=== PATIENT | female | born 1945 | race Caucasian/White ===

== ENCOUNTER → 2023-03-07 | Outpatient (CLI) | payer MEDICARE, SELFPAY ==
--- NOTE | 2023-03-07 13:06 | US_ITS ---
STUDY: RENAL ULTRASOUND - COMPLETE REASON FOR EXAM: Female, 77 years old. UTI . History of prior partial left nephrectomy. TECHNIQUE: Ultrasound evaluation of the kidneys was performed with real-time and static irwin-scale imaging. COMPARISON: None. FINDINGS: RIGHT KIDNEY: Normal location of the right kidney, which is normal in size. The right kidney measures 11.5 cm x 4.8 cm x 4.5 cm. There is a normal cortex of the right kidney. The renal cortex measures 1.1 cm. There is no right renal mass or cyst. There are no right renal calculi. There is no right hydronephrosis. DISTAL RIGHT URETER: There is non-visualization of the distal right ureter. There is no demonstrated right ureterovesical junction calculus. There is a visualized right ureteral jet. LEFT KIDNEY: Normal location of the left kidney, which is normal in size. The left kidney measures 9.3 cm x 5.1 cm x 4.7 cm. There is a normal cortex of the left kidney. The renal cortex measures 1.0 cm. There is no left renal mass or cyst. Nonobstructive intrarenal calculi. The largest measures 5 mm x 3 mm x 3 mm. There is no left hydronephrosis. DISTAL LEFT URETER: There is non-visualization of the distal left ureter. There is no demonstrated left ureterovesical junction calculus. There is a visualized left ureteral jet. BLADDER: The distended urinary bladder has a volume of 86 ml. There is a normal wall thickness of the distended urinary bladder. There is no demonstrated mass within the urinary bladder. There are no demonstrated bladder calculi. US/Kidney and Bladder IMPRESSION: Nonobstructive left intrarenal calculi. Electronically Signed: Maximus Millan MD at 16:09 [facility] ,
== END | disposition home or self-care (01) ==
PROVIDERS: PCP Internal Medicine; Referring Provider Urology; Visit Provider Urology
DX: Q60.0 Renal agenesis, unilateral (principal); N39.0 Urinary tract infection, site not specified; Z87.442 Personal history of urinary calculi
CPT/HCPCS: 76770

== ENCOUNTER → 2023-03-21 | Outpatient (CLI) | payer MEDICARE, SELFPAY ==
--- NOTE | 2023-03-21 14:41 | CT_ITS ---
STUDY: CT ABDOMEN AND PELVIS WITHOUT CONTRAST REASON FOR EXAM: Female, 78 years old. RENAL STONES. History of prior partial left nephrectomy. RADIATION DOSAGE (If Supplied By Facility): CTDIvol = ( 17.37 ) mGy, DLP = ( 833.26 ) mGycm TECHNIQUE: Transaxial images were obtained from the dome of the diaphragm to the symphysis pubis without oral contrast, and without intravenous contrast. Sagittal and coronal images were reconstructed. Individualized dose optimization techniques were used for this CT. COMPARISON: None. FINDINGS: The visualized lung bases are unremarkable. Coronary artery calcification. Normal liver. There are surgical clips in the gallbladder fossa consistent with a prior cholecystectomy. Normal spleen. Normal pancreas. Normal bilateral adrenal glands. Normal right kidney. Punctate cortical calcification along the posterior midportion of the left kidney. Normal visualized stomach. Normal small intestine. Normal colon. There are surgical clips in the region of the appendix consistent with a prior appendectomy. There is scattered atherosclerotic calcification of the abdominal aorta, without a demonstrated aneurysm. Normal inferior vena cava. There is borderline retroperitoneal lymphadenopathy with enlarged nodes no greater than 10mm in the short axis diameter. Normal urinary bladder. There is absence of the uterus consistent with a prior hysterectomy. There is an umbilical hernia containing fat. The neck of the hernia measures 3.5 cm. There are diffuse degenerative changes of the visualized lumbar spine. CT/Abdomen/Pelvis without Cont IMPRESSION: Umbilical hernia. Status post cholecystectomy. Electronically Signed: Maximus Millan MD at 15:26 EST ,
--- OUTSIDE RECORDS SUMMARY | 2023-03-21 18:34 | XMS RPT_ITS | CCD ---
Author Name Unknown Address [address] [place] [address] Organization [facility] Care Team Providers Care Input Output Clerk Name Role Phone Renuka Ovalle Primary Care Provider Monica PALMER, Javan Unavailable Vasquez PALMER, Renuka Reed Primary Care Provider LAURIE MACIAS Attending Unavailable RENUKA OVALLE Primary Care Unavailable OLIVIA LIMON Attending Unavailable RENUKA OVALLE Primary Care Unavailable VASQUEZ, RENUKA REED Primary Care Unavailable GARRET SMITH Attending Unavailable OLIVIA LIMON Attending Unavailable VASQUEZ, RENUKA REED Primary Care Unavailable OLIVIA LIMON Admitting Unavailable OLIVIA LIMON Attending Unavailable VASQUEZ, RENUKA REED Primary Care Unavailable VASQUEZ, RENUKA REED Primary Care Unavailable OLIVIA LIMON Referring Unavailable RENUKA OVALLE Primary Care Unavailable VASQUEZ, RENUKA REED Primary Care Unavailable PHILIPPE HUBBARD Attending Unavailable JERMAN STERN Attending Unavailable RENUKA OVALLE Primary Care Unavailable JERMAN STERN Referring Unavailable RENUKA OVALLE Primary Care Unavailable JAVAN ANDERSON Attending Unavailable VASQUEZ, RENUKA Primary Care Unavailable Allergies Allergy Classification Reported Allergen(s) Allergy Type Date of Onset Reaction(s) Facility (11 sources) Amoxicillin; Translations: [AMOXICILLIN] Drug Allergy 08-11-19 Shortness of Breath [facility] (16 sources) Amoxicillin / Clavulanate; Translations: [AMOXICILLIN-POT CLAVULANATE] Drug Allergy 08-11-19 Vomiting [facility] (16 sources) Ampicillin; Translations: [AMPICILLIN] Drug Allergy 07-17-19 Vomiting [facility] (16 sources) cefdinir; Translations: [CEFDINIR] Drug Allergy 02-18-19 [facility] (16 sources) cefTRIAXone; Translations: [CEFTRIAXONE] Drug Allergy 02-18-19 [facility] (16 sources) Cefuroxime; Translations: [CEFUROXIME] Drug Allergy 02-18-19 [facility] (16 sources) diphenhydrAMINE / Pseudoephedrine; Translations: [DIPHENHYDRAMINE-PS EUDOEPHED] Drug Allergy 07-17-19 Other: See Comments [facility] (16 sources) Doxycycline; Translations: [DOXYCYCLINE] Drug Allergy 02-18-19 GI Upset [facility] (16 sources) Nitrofurantoin; Translations: [NITROFURANTOIN MACROCRYSTAL] Drug Allergy 07-17-19 Hives [facility] (16 sources) Sulfonamides (Antibiotic); Translations: [SULFA (SULFONAMIDE ANTIBIOTICS)] Drug Intolerance 07-17-19 [facility] (8 sources) levoFLOXacin; Translations: [LEVOFLOXACIN] Drug Allergy 04-11-19 Other: See Comments [facility] Medications Current Medications Medication Drug Class(es) Dates Sig (Normalized) Sig (Original) amoxicillin 500 mg / clavulanate 125 mg oral tablet (1 source) Penicillin-class Antibacterial Start: 11-08-2022 End: 11-15-2022 take 1 tablet by mouth twice daily amoxicillin-clav ulanic acid (AUGMENTIN) 500-125 mg per tablet Take 1 tablet by mouth twice daily for 7 days. 14 tablet 0 11/08/2022 11/15/2022 Active Completed/Discontinued Medications Medication Drug Class(es) Dates Sig (Normalized) Sig (Original) clobetasol propionate 0.5 mg/ml topical solution (20 sources) Corticosteroid Start: 02-16-2021 Clobetasol Propionate (TEMOVATE) 0.05 % external solution Problems Active Problems Problem Classification Problem Date Documented Da te Episodic/Chronic Abdominal pain (2 sources) Unspecified abdominal pain; Translations: [Unspecified abdominal pain] Onset: 02-22-2023 Episodic Asthma (15 sources) Asthma; Translations: [Unspecified asthma, uncomplicated] Onset: 07-02-2018 07-02-2018 Chronic Calculus of urinary tract (15 sources) Kidney stone; Translations: [Calculus of kidney] Onset: 03-27-2022 Episodic Chronic obstructive pulmonary disease and bronchiectasis (15 sources) Chronic obstructive lung disease; Translations: [Chronic obstructive pulmonary disease, unspecified] Onset: 07-02-2018 07-02-2018 Chronic Essential hypertension (15 sources) Hypertensive disorder; Translations: [Essential (primary) hypertension] Onset: 07-02-2018 07-02-2018 Chronic Osteoarthritis (15 sources) Osteoarthritis; Translations: [Primary generalized (osteo)arthritis] Onset: 07-02-2018 07-02-2018 Chronic Other diseases of bladder and urethra (2 sources) Overactive bladder; Translations: [Overactive bladder] Onset: 11-18-2022 Chronic Other diseases of bladder and urethra (1 source) Overactive bladder; Translations: [OAB (overactive bladder)] Onset: 11-18-2022 Chronic Other nutritional; endocrine; and metabolic disorders (7 sources) Obese class I; Translations: [Obesity, unspecified] Onset: 04-12-2022 04-12-2022 Chronic Residual codes; unclassified (2 sources) History of partial nephrectomy; Translations: [Acquired absence of kidney] Onset: 11-18-2022 Episodic Residual codes; unclassified (2 sources) Acquired absence of kidney; Translations: [Hx of partial nephrectomy] Onset: 03-14-2022 Episodic Urinary tract infections (15 sources) Acute urinary tract infection; Translations: [Urinary tract infection, site not specified] Onset: 03-14-2022 Episodic Past or Other Problems Problem Classification Problem Date Documented Date Episodic/Chronic Biliary tract disease (15 sources) Calculus of cystic duct; Translations: [Calculus of gallbladder without cholecystitis without obstruction] Onset: 08-10-2018 08-10-2018 Episodic Deficiency and other anemia (15 sources) Anemia; Translations: [Anemia, unspecified] Onset: 07-02-2018 07-02-2018 Episodic Other diseases of kidney and ureters (15 sources) Kidney disease; Translations: [Disorder of kidney and ureter, unspecified] Onset: 07-02-2018 07-02-2018 Episodic Other lower respiratory disease (15 sources) Disorder of lung; Translations: [Other disorders of lung] Onset: 07-02-2018 07-02-2018 Episodic Other lower respiratory disease (1 source) Solitary pulmonary nodule; Translations: [Lung nodule] Onset: 03-27-2022 Episodic Thyroid disorders (15 sources) Disorder of thyroid gland; Translations: [Disorder of thyroid, unspecified] Onset: 07-02-2018 07-02-2018 Episodic Results Test Name Value Interpretation Reference Range Facil ity Vital Signs Date Time Vital Sign Value Performing Clinician Иван vasquez 05-16-2022 11:13-0400 Body height 165.1 cm Jerman Stern BARBER APPRENTICE.MACHINE ROPE MAKER Work Phone: [facility] 05-16-2022 11:13-0400 Body weight 91.17 kg Jermansyed Stern BARBER APPRENTICE.MACHINE ROPE MAKER Work Phone: [facility] 05-16-2022 11:13-0400 Diastolic blood pressure 78 mm[Hg] Jerman Stern BARBER APPRENTICE.MACHINE ROPE MAKER Work Phone: [facility] 05-16-2022 11:13-0400 Systolic blood pressure 117 mm[Hg] Jerman Stern BARBER APPRENTICE.MACHINE ROPE MAKER Work Phone: [facility] 03-14-2022 15:28-0500 Body height 165.1 cm Olivia Limon MD Work Phone: [facility] 03-14-2022 15:28-0500 Body weight 91.17 kg Olivia Limon MD Work Phone: [facility] 03-14-2022 15:28-0500 Diastolic blood pressure 80 mm[Hg] Olivia Limon MD Work Phone: [facility] 03-14-2022 15:28-0500 Systolic blood pressure 128 mm[Hg] Olivia Limon MD Work Phone: [facility] Encounters Encounter Date Encounter Type Care Provider Facility Start: 02-22-2023 End: 02-22-2023 ambulatory [facility] Start: 11-21-2022 Telephone encounter Laurie Macias BARBER APPRENTICE.MACHINE ROPE MAKER Work Phone: Urology Start: 11-18-2022 End: 11-18-2022 ambulatory LAURIE MACIAS Facility:[id number] Start: 11-08-2022 Telephone encounter Nancy chan BARBER APPRENTICE.MACHINE ROPE MAKER Work Phone: Urology Start: 10-03-2022 Telephone encounter Javan estevez MD Work Phone: [facility] Start: 09-30-2022 Telephone encounter Javan estevez MD Work Phone: [facility] Procedures Date Procedure Procedure Detail Performing Clinician Start: 05-16-2022 Radiologic exam abdo men 1 view Jerman Stern BARBER APPRENTICE.MACHINE ROPE MAKER Work Phone: Start: 05-16-2022 Urnls dip stick/tabl et rgnt auto w/o microscopy Jerman Stern BARBER APPRENTICE.MACHINE ROPE MAKER Work Phone: Start: 04-12-2022 Radiologic exam abdo men 1 view Olivia Limon MD Work Phone: Start: 07-16-2020 Mammography Olivia hernandez MD Work Phone: Start: 02-22-2020 Lipid 1996 panel - S jihan or Plasma Nancy Benítez BARBER APPRENTICE.MACHINE ROPE MAKER Work Phone: Plan of Treatment Date Care Activity Detail Author Start: 11-03-2025 Diabetes Screening Diabetes Screenin g [facility] Start: 05-04-2025 DIABETES SCREEN DIABETES SCREEN [facility] Start: 03-26-2025 DIABETES SCREEN DIABETES SCREEN [facility] Start: 02-21-2025 Lipid 1996 panel - Serum or Plasma Lipid Screening [facility] Start: 02-21-2025 LIPID SCREEN LIPID SCREEN [facility] Start: 08-13-2024 DIABETES SCREEN DIABETES SCREEN [facility] Start: 05-17-2023 BP CONTROLLED (<130/80) BP CONTROLLE D (<130/80) [facility] Start: 03-30-2023 BP CONTROLLED (<130/80) BP CONTROLLE D (<130/80) [facility] Start: 01-11-2023 End: 01-11-2023 Patient encounter procedure 01/11/2023 10:00 AM EST Office Visit [facility] [address] [place] [address] Javan Anderson MD [address] [place] [address] [facility] Start: 11-23-2022 End: 11-23-2022 Patient encounter procedure 11/23/2022 3:00 PM EDT Office Visit [facility] [address] [place] [address] Javan Anderson MD [address] [place] [address] [facility] Start: 11-15-2022 End: 05-17-2023 XR ABDOMEN 1V SUPINE XR ABDOMEN 1V SUPINE Radiology Routine Renal stones Expected: 11/15/2022 (Approximate), Expires: 05/17/2023 [facility] Work Phone: Payers Date Payer Category Payer Medicare [id number] 2021 Medicare [employer] MEDICARE A ETNA MEDICARE PPO [id number] 2021-Present [phone] [address] [place] [address] PPO [id number] 2021 Medicare [id number] Social History Date Type Detail Facility Start: 07-02-2018 End: 03-26-2022 Tobacco smoking status NHIS Never smoked tobacco [facility] Start: 07-02-2018 End: 03-26-2022 Tobacco use and exposure Smokeless tobacco non-user [facility] Start: 02-18-2021 End: 11-18-2022 Alcohol intake Lifetime non-drinker (finding) [facility] Start: 08-27-2018 History SDOH Alcohol Frequency 1 [facility] Start: 1945 Sex Assigned At Not on file [facility] Start: 08-22-2021 End: 09-01-2021 Exposure to SARS-CoV-2 (event) Not sure [facility] Tobacco smoking stat [facility] Tobacco smoking consumption unknown [facility] Start: 08-27-2018 End: 11-18-2022 Gender identity Not on file [facility] Start: 08-27-2018 End: 11-18-2022 History of Social function [facility] How often to you hav e a drink containing alcohol? Never [facility] Average Number of Drinks Not on file [facility] Clinical Notes 02-18-2021 to 11-21-2022 Telephone Encounter - Vanesa Brandon MA - 11/21/2022 3:45 PM EDTTelephone Encounter - Laurie Macias APRN.CNP - 11/21/2022 12:19 PM EDTAlexRT Marta(R) - 05/16/2022 12:15 PM EDT Note Date & Type Note Facility 11-21-2022 Miscellaneous Notes Notified pt. Vanesa Brandon MA Please advise urine cx negative. 10-50k normal urogenital lani. No tx recommended at this time. documented in this encounter [facility] 11-18-2022 Note HNO ID: [id number] Author: Laurie Macias APRN.CNP Service: ? Author Type: Nurse Practitioner Type: Progress Notes Filed: 11/18/2022 1:04 PM Note Text: [facility] ESTABLISHED PATIENT FOLLOW-UP NOTE PATIENT: Meme Gilbert (77 year old) PCP: Renuka Ovalle MD SUMMARY: Jasonn known to Dr. Limon. Hx of Niki, hx of nephrolithiasis, OAB, and hx of partial nephrectomy in 1983 for Niki. Last seen in office by Jerman Stern APRN, CNP on 05/16/22 for ER follow-up for R UVJ stone and follow-up in 6 months. ASSESSMENT/PLAN: 1. History of nephrolithiasis - ICD9: V13.01, ICD10: Z87.442 (primary diagnosis) KUB not completed prior to visit. Advised to complete. 2. Hx of partial nephrectomy - ICD9: V15.29, ICD10: Z90.5 Hx of partial nephrectomy in 1983 d/t Niki per her report. 3. OAB (overactive bladder) - ICD9: 596.51, ICD10: N32.81 No current medications. 4. Recurrent UTI - ICD9: 599.0, ICD10: N39.0 Most recent lab reviewed ordered by Dr. Ovalle which demonstrated >100k E-coli and 10-50 k klebsiella. Reviewed extensive list of allergies at length which include cefdinir, cefuroxime, Levaquin, rocephin, ampicillin, Augmentin, doxycycline, nitrofurantoin, and sulfa. Advised that Cipro is still sensitive. She reported that she is unable to take even though not on allergy list. Reported she is only able to take Gentamycin as she was told by hospital it was the only medication that would cure her infections . She was recently treated by Nancy Benítez APRN, CNP on 11/09/22 for concern for infection and was treated with Augmentin. Patient reported she was not given Augmentin she was only on amoxicillin. Advised that Augmentin was sent into pharmacy. She stated she tolerated medication without difficulty. No zofran needed. Advised would recommend catheterized urine cx. Patient adamantly declined. I reviewed her most recent cx history at great length. Cx history only identified one cx proven UTI this year. Advised patient would not recommend standing order for urine cx and would recommend restarting vitamin D and methenamine as decreases risk for future Niki. She reported that they do not work and only take the edge off the infection enough to not show on a urine cx. Instructed patient that would recommend cath urine if symptomatic for UTI only to be able to accurately evaluate if she is having a UTI due to multiple antibiotic sensitivities and allergies. I discussed with the patient the diagnosis of recurrent UTI. We reviewed possible etiologies and discussed pertinent lifestyle modifications. Discussed with patient that a urinary tract infection (UTI) is a positive urine culture AND presence of urinary symptoms (dysuria, frequency, urgency, suprapubic pain). Recurrent urinary tract infections (Niki) is defined as 2 or more UTIs in 6 month period or 3 in 12 month period. I advised patient that I would send out voided urine specimen for clearance of infection as she is still having burning and vague LUQ pain. Declines imaging. No CVA tenderness stating that she knows what her infections are and feel like, no matter what the culture shows . Patient reported that she is going to make an appointment with another urologist for a second opinion. She requested I send this office visit to Dr. Gonzalez. - URINE CULTURE FOLLOW UP: Patient declined to make further appointment. CHIEF COMPLAINT: Patient presents with: nephrolithiasis: Pt here for 6 month follow up. HISTORY OF PRESENT ILLNESS: Prior notes were reviewed. Patient presents for 6 month follow-up for Niki, hx of nephrolithiasis, and OAB. Reports she was recently tx for uti and reported intermittent LUQ pain and dysuria. Denies any fever, chills, weakness, or night sweats. REVIEW OF SYSTEMS GENERAL:Denies unintentional weight loss, malaise or fevers. NEUROLOGIC: pt is alert and oriented GASTROINTESTINAL: No nausea, vomiting, or diarrhea GENITOURINARY: See HPI MUSCULOSKELETAL: Negative for joint pain or swelling, back pain or muscle pain SKIN: Negative for lesions, rash, and itching. ALLERGIES: ALLERGIES Allergen Reactions Ampicillin Vomiting Augmentin [Amoxicil* Vomiting Benadryl Allergy Si* Other: See Comments wheeze Cefdinir Rash Cefuroxime Rash Doxycycline GI Upset Levaquin [Levofloxa* Other: See Comments Tendonitis Macrodantin [Nitrof* Hives Rocephin [Ceftriaxo* Rash Sulfa (Sulfonamide * Rash MEDICATIONS: ondansetron (ZOFRAN) 4 mg tablet Take 1 tablet by mouth every 8 hours as needed. (Patient not taking: Reported on 11/18/2022) clobetasol (TEMOVATE) 0.05 % cream Apply to aff (more content not included)... [facility] 11-08-2022 Miscellaneous Notes I called pt because she is allergic to so many oral drug classes. She will try Augmentin and she will take Zofran as needed for the nausea vomiting (if it even causes it this time- she has not tried Augmentin in years.) I will have Laurie re check a urine c+s at her appt on 11/17/22 to verify that infection has cleared. Pt called for C+S results. Vanesa Brandon MA documented in this encounter [facility] 10-03-2022 Telephone encounter Note Pt called in stating she wants to become a patient of Dr Anderson in [place]. Informed her he is only in the office there once a month-pt states that's ok hunnie . I asked patient what symptoms she is having and she states Oh elananie I have kidney infections for 50 years , states she has frequency and odor and bubbling in the urine. States her PCP wanted her to see a urologist. [facility] 10-03-2022 Miscellaneous Notes Pt called in stating she wants to become a patient of Dr Anderson in [place]. Informed her he is only in the office there once a month-pt states that's ok chiqui . I asked patient what symptoms she is having and she states Oh chiqui I have kidney infections for 50 years , states she has frequency and odor and bubbling in the urine. States her PCP wanted her to see a urologist. documented in this encounter [facility] 09-30-2022 Telephone encounter Note Name of Caller: Meme Contact Reason for Appointment: Pt states her is a Pt of Dr. Lutz and she would like to see about setting up a SCHOOL SPEECH LANGUAGE PATHOLOGIST appt. Please advise Office Name: [facility] Urology Medication Refills need, if any: NA Medication Name: NA [facility] 09-30-2022 Miscellaneous Notes Name of Caller: Meme Contact Reason for Appointment: Pt states her is a Pt of Dr. Lutz and she would like to see about setting up a SCHOOL SPEECH LANGUAGE PATHOLOGIST appt. Please advise Office Name: [facility] Urology Medication Refills need, if any: NA Medication Name: NA documented in this encounter [facility] 05-16-2022 Miscellaneous Notes Pt left a voicemail stating she was returning a call from you about her x-ray results. She states a good phone number to call her back at is [phone]. CHARLEE Arrieta documented in this encounter [facility] 05-16-2022 Note HNO ID: [id number] Author: RT Simi(R) Service: Radiology Author Type: Technologist Type: Progress Notes Filed: 05/16/2022 12:35 PM Note Text: Summary: ABDOMEN Radiology Service Progress Note PATIENT NAME: Meme Gilbert DATE OF SERVICE: May 16, 2022 TIME: 12:35 PM PATIENT IDENTITY VERIFICATION COMPLETED USING TWO (2) IDENTIFIERS: Name and Date of confirmed by patient verbally. FALL SCREENING: Has the patient had 2 falls in the last year or 1 fall with injury or currently using an Ambulatory Assistive Device (Walker, Cane, Wheelchair, Crutches, etc.)? No PATIENT GENDER DATA: Female. status: : No status: NO. PATIENT RELEVANT IMPLANT DATA REVIEWED: Not Applicable RADIOLOGY DEPARTMENT: General X-ray: Exam(s) Completed: Abdomen X-Ray: Abdomen PERIPHERAL IV DATA: Not applicable SIGNED BY: RT Simi(R) May 16, 2022 12:35 PM [facility] 05-16-2022 Note HNO ID: [id number] Author: Jerman Stern APRN.MACHINE ROPE MAKER Service: ? Author Type: Nurse Practitioner Type: Progress Notes Filed: 05/16/2022 12:03 PM Note Text: [facility] [place] ESTABLISHED PATIENT OFFICE VISIT No chief complaint on file. HISTORY OF PRESENT ILLNESS Meme Gilbert is a 77 year old female who is here for follow up of renal stone CT scan 05/04/22- 4mm R UVJ stone Since the ED she has not had any further pain. However she did not notice anything pass. She does report occasional pelvic fullness, feels like she may have an infection today. States that -mycins' work for her without reactions. She is also requesting pyridium- she is aware of the risk with renal disease and impaired functioning, she has previously tolerated. Review of Systems Constitutional: Negative for appetite change. HENT: Negative for sneezing. Respiratory: Negative for cough. Cardiovascular: Negative for chest pain. Gastrointestinal: Negative for nausea and vomiting. Skin: Negative for rash. Neurological: Negative for facial asymmetry. The remainder of the ROS was reviewed and is negative. LAB Creatinine Date Value Ref Range Status 05/04/2022 1.98 (H) 0.51 - 0.95 mg/dL Final Comment: Patients receiving either N-Acetylcysteine (NAC) or Metamizole prior to venipuncture, may have falsely depressed results. No results found for: PSA, PSASC GLUCOSE UA (POCT) (mg/dL) Date Value 03/30/2022 Negative BILIRUBIN UA (POCT) (no units) Date Value 03/30/2022 Negative KETONE UA (POCT) (mg/dL) Date Value 03/30/2022 Negative SPECIFIC GRAVITY UA (POCT) (no units) Date Value 03/30/2022 1.020 HEMOGLOBIN/BLOOD UA (POCT) (no units) Date Value 03/30/2022 Negative PH UA (POCT) (no units) Date Value 03/30/2022 6.5 PROTEIN UA (POCT) (mg/dL) Date Value 03/30/2022 Negative UROBILINOGEN UA (POCT) (E.U./dL) Date Value 03/30/2022 0.2 NITRITE UA (POCT) (no units) Date Value 03/30/2022 Negative LEUKOCYTES UA (POCT) (no units) Date Value 03/30/2022 Trace (A) COLOR UA (POCT) (no units) Date Value 03/30/2022 Yellow CLARITY UA (POCT) (no units) Date Value 03/30/2022 Clear ] MEDICATIONS clobetasol (TEMOVATE) 0.05 % cream Apply to affected area twice daily. 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 PAST SURGICAL HISTORY Procedure Laterality Date APPENDECTOMY 1960 CHOLECYSTECTOMY 2018 LITHOTRIPSY XTRCORP SHOCK WAVE PAST SURGICAL HISTORY OF 1983 Partial Excision kidney -left PAST SURGICAL HISTORY OF 2001 Cystoscope kidney/bladder PAST SURGICAL HISTORY OF 08/10/2018 Gallstone removal x 2 TOTAL ABDOMINAL HYSTERECT W/WO RMVL TUBE OVARY 1995 URETERAL STENT FAMILY HISTORY Problem Relation Age of Onset Heart disease Mother Kidney Disease Mother Cancer Mother other (Lung/Respiratory Disease) Mother Heart disease Daughter Kidney Disease Maternal Aunt SOCIAL HISTORY Social History Tobacco Use Smoking status: Never Smokeless tobacco: Never Vaping Use Vaping Use: Never used Substance Use Topics Alcohol use: Never Drug use: Never There were no vitals taken for this visit. Physical Exam Vitals reviewed. Constitutional: General: She is not in acute distress. Cardiovascular: Rate and Rhythm: Normal rate and regular rhythm. Pulmonary: Breath sounds: Normal breath sounds. Neurological: Mental Status: She is alert and oriented to person, place, and time. ASSESSMENT/PLAN: 1. Renal stones - ICD9: 592.0, ICD10: N20.0 (primary diagnosis) CT scan 05/04/22- 4mm R UVJ stone ; no further pain Agreeble to KUB now to assess passage of stone; otherwise f/u 6 months with KUB - XR ABDOMEN 1V SUPINE - XR ABDOMEN 1V SUPINE 2. Acute cystitis without hematuria - ICD9: 595.0, ICD10: N30.00 Will send urine today for culture, started Clindamycin - - CLINDAMYCIN HCL 300 MG CAPSULE - PHENAZOPYRIDINE 200 MG TABLET - URINE CULTURE Jerman Stern, BARBER APPRENTICE.MACHINE ROPE MAKER This note was partially created using voice recognition software and is inherently subject to errors including those of syntax and sound-alike substitutions which may escape proofreading. In such instances, original meaning may be extrapolated by contextual derivation. [facility] 05-16-2022 History of Presen t illness Narrative Summary: ABDOMEN Radiology Service Progress Note PATIENT NAME: Meme Gilbert DATE OF SERVICE: May 16, 2022 TIME: 12:35 PM PATIENT IDENTITY VERIFICATION COMPLETED USING TWO (2) IDENTIFIERS: Name and Date of confirmed by patient verbally. FALL SCREENING: Has the patient had 2 falls in the last year or 1 fall with injury or currently using an Ambulatory Assistive Device (Walker, Cane, Wheelchair, Crutches, etc.)? No PATIENT GENDER DATA: Female. status: : No status: NO. PATIENT RELEVANT IMPLANT DATA REVIEWED: Not Applicable RADIOLOGY DEPARTMENT: General X-ray: Exam(s) Completed: Abdomen X-Ray: Abdomen PERIPHERAL IV DATA: Not applicable SIGNED BY: RT Simi(R) May 16, 2022 12:35 PM documented in this encounter [facility] 05-16-2022 History of Presen t illness Narrative Images from the original note were not included. [facility] [place] ESTABLISHED PATIENT OFFICE VISIT No chief complaint on file. HISTORY OF PRESENT ILLNESS Meme Gilbert is a 77 year old female who is here for follow up of renal stone CT scan 05/04/22- 4mm R UVJ stone Since the ED she has not had any further pain. However she did not notice anything pass. She does report occasional pelvic fullness, feels like she may have an infection today. States that -mycins' work for her without reactions. She is also requesting pyridium- she is aware of the risk with renal disease and impaired functioning, she has previously tolerated. Review of Systems Constitutional: Negative for appetite change. HENT: Negative for sneezing. Respiratory: Negative for cough. Cardiovascular: Negative for chest pain. Gastrointestinal: Negative for nausea and vomiting. Skin: Negative for rash. Neurological: Negative for facial asymmetry. The remainder of the ROS was reviewed and is negative. LAB Creatinine Date Value Ref Range Status 05/04/2022 1.98 (H) 0.51 - 0.95 mg/dL Final Comment: Patients receiving either N-Acetylcysteine (NAC) or Metamizole prior to venipuncture, may have falsely depressed results. No results found for: PSA, PSASC GLUCOSE UA (POCT) (mg/dL) Date Value 03/30/2022 Negative BILIRUBIN UA (POCT) (no units) Date Value 03/30/2022 Negative KETONE UA (POCT) (mg/dL) Date Value 03/30/2022 Negative SPECIFIC GRAVITY UA (POCT) (no units) Date Value 03/30/2022 1.020 HEMOGLOBIN/BLOOD UA (POCT) (no units) Date Value 03/30/2022 Negative PH UA (POCT) (no units) Date Value 03/30/2022 6.5 PROTEIN UA (POCT) (mg/dL) Date Value 03/30/2022 Negative UROBILINOGEN UA (POCT) (E.U./dL) Date Value 03/30/2022 0.2 NITRITE UA (POCT) (no units) Date Value 03/30/2022 Negative LEUKOCYTES UA (POCT) (no units) Date Value 03/30/2022 Trace (A) COLOR UA (POCT) (no units) Date Value 03/30/2022 Yellow CLARITY UA (POCT) (no units) Date Value 03/30/2022 Clear ] MEDICATIONS clobetasol (TEMOVATE) 0.05 % cream Apply to affected area twice daily. 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 PAST SURGICAL HISTORY Procedure Laterality Date APPENDECTOMY 1960 CHOLECYSTECTOMY 2018 LITHOTRIPSY XTRCORP SHOCK WAVE PAST SURGICAL HISTORY OF 1983 Partial Excision kidney -left PAST SURGICAL HISTORY OF 2001 Cystoscope kidney/bladder PAST SURGICAL HISTORY OF 08/10/2018 Gallstone removal x 2 TOTAL ABDOMINAL HYSTERECT W/WO RMVL TUBE OVARY 1995 URETERAL STENT FAMILY HISTORY Problem Relation Age of Onset Heart disease Mother Kidney Disease Mother Cancer Mother other (Lung/Respiratory Disease) Mother Heart disease Daughter Kidney Disease Maternal Aunt SOCIAL HISTORY Social History Tobacco Use Smoking status: Never Smokeless tobacco: Never Vaping Use Vaping Use: Never used Substance Use Topics Alcohol use: Never Drug use: Never There were no vitals taken for this visit. Physical Exam Vitals reviewed. Constitutional: General: She is not in acute distress. Cardiovascular: Rate and Rhythm: Normal rate and regular rhythm. Pulmonary: Breath sounds: Normal breath sounds. Neurological: Mental Status: She is alert and oriented to person, place, and time. ASSESSMENT/PLAN: 1. Renal stones - ICD9: 592.0, ICD10: N20.0 (primary diagnosis) CT scan 05/04/22- 4mm R UVJ stone ; no further pain Agreeble to KUB now to assess passage of stone; otherwise f/u 6 months with KUB - XR ABDOMEN 1V SUPINE - XR ABDOMEN 1V SUPINE 2. Acute cystitis without hematuria - ICD9: 595.0, ICD10: N30.00 Will send urine today for culture, started Clindamycin - - CLINDAMYCIN HCL 300 MG CAPSULE - PHENAZOPYRIDINE 200 MG TABLET - URINE CULTURE Jerman Stern APRN.CNP This note was partially created using voice recognition software and is inherently subject to errors including those of syntax and sound-alike substitutions which may escape proofreading. In such instances, original meaning may be extrapolated by contextual derivation. documented in this encounter [facility] 05-02-2022 Note HNO ID: [id number] Author: RT Surinder(R) Service: Radiology Author Type: Technologist Type: Progress Notes Filed: 05/02/2022 11:21 AM Note Text: Radiology Service Progress Note PATIENT NAME: Meme Gilbert DATE OF SERVICE: May 02, 2022 TIME: 11:20 AM PATIENT IDENTITY VERIFICATION COMPLETED USING TWO (2) IDENTIFIERS: Name and Date of confirmed by patient verbally. FALL SCREENING: Has the patient had 2 falls in the last year or 1 fall with injury or currently using an Ambulatory Assistive Device (Walker, Cane, Wheelchair, Crutches, etc.)? No PATIENT GENDER DATA: Female. status: : No status: NO. PATIENT RELEVANT IMPLANT DATA REVIEWED: Yes RADIOLOGY DEPARTMENT: CT; Exam(s) Completed: Abdomen/Pelvis PERIPHERAL IV DATA: Not applicable SIGNED BY: RT Surinder(R) May 02, 2022 11:20 AM [facility] 04-12-2022 Note HNO ID: [id number] Author: NAKUL Doherty) Service: ? Author Type: Technologist Type: Progress Notes Filed: 04/12/2022 8:45 AM Note Text: Radiology Service Progress Note PATIENT NAME: Meme Gilbert DATE OF SERVICE: April 12, 2022 TIME: 8:45 AM PATIENT IDENTITY VERIFICATION COMPLETED USING TWO (2) IDENTIFIERS: Name and Date of confirmed by patient verbally and Name and Date of confirmed by identification band. FALL SCREENING: Has the patient had 2 falls in the last year or 1 fall with injury or currently using an Ambulatory Assistive Device (Walker, Cane, Wheelchair, Crutches, etc.)? No PATIENT GENDER DATA: Female. status: : No status: NO. PATIENT RELEVANT IMPLANT DATA REVIEWED: Not Applicable RADIOLOGY DEPARTMENT: General X-ray: Exam(s) Completed: Abdomen X-Ray: Abdomen PERIPHERAL IV DATA: Not applicable SIGNED BY: RT Bessy(R) April 12, 2022 8:45 AM [facility] 04-12-2022 History of Presen t illness Narrative Radiology Service Progress Note PATIENT NAME: Meme Gilbert DATE OF SERVICE: April 12, 2022 TIME: 8:45 AM PATIENT IDENTITY VERIFICATION COMPLETED USING TWO (2) IDENTIFIERS: Name and Date of confirmed by patient verbally and Name and Date of confirmed by identification band. FALL SCREENING: Has the patient had 2 falls in the last year or 1 fall with injury or currently using an Ambulatory Assistive Device (Walker, Cane, Wheelchair, Crutches, etc.)? No PATIENT GENDER DATA: Female. status: : No status: NO. PATIENT RELEVANT IMPLANT DATA REVIEWED: Not Applicable RADIOLOGY DEPARTMENT: General X-ray: Exam(s) Completed: Abdomen X-Ray: Abdomen PERIPHERAL IV DATA: Not applicable SIGNED BY: RT Bessy(Mackenzie) April 12, 2022 8:45 AM documented in this encounter [facility] 04-11-2022 Note HNO ID: [id number] Author: Janette Craft RN Service: ? Author Type: Registered Nurse Type: Progress Notes Filed: 04/11/2022 4:48 PM Note Text: PRE-PROCEDURE INSTRUCTIONS TO PREPARE FOR YOUR PROCEDURE: Your arrival time for your procedure is 0830. Do NOT eat any solid foods after MIDNIGHT the night prior to your procedure - this includes gum or mints. You can drink clear liquids* up until 0630, which is 2 hours before your arrival time. *Clear liquids = water, carbohydrate drink (sports drink that is clear or yellow in color), Ensure Pre-Surgery (given by MELODY or your DrRachel), fruit juice without pulp (apple/cranberry), clear tea, black coffee (no cream). NO ALCOHOL. Shower the morning of the procedure, put on clean clothes, and have clean sheets for your bed to help prevent infection after your procedure. Leave all valuables such as jewelry including rings, piercings, wallets, and purses at home. Wear comfortable, loose-fitting clothing. If you wear glasses or contacts, please bring a case. SPECIAL INSTRUCTIONS: If instructed, bring your first voided urine specimen with you. If you were provided skin preparation to use prior to your procedure, complete this as directed. If you were provided Ensure Pre-Surgery drink, you need to drink this at . This should be consumed quickly (in less than 5 minutes, rather than sipped over time) If you use crutches or a walker, bring them with you. If you have a home CPAP/BIPAP machine, bring it with you. If you were instructed to complete a fleets enema or bowel prep, complete as directed. Bring copy of Living Will/Power of Manager Air. Do not smoke or chew. If you use tobacco, quit or at least cut down before surgery. Do not smoke or chew after midnight the day before your surgery. This effects bleeding, infection, healing, and so much more. Do not take any Diet or Herbal Supplements 2 weeks prior to your surgery date. Please notify your physician if there is any change in your physical condition such as a cold, cough, fever, sore throat, or skin irritation near the surgical site. Visitors under the age of 14 are restricted in the Surgery Center. UPON ARRIVAL: Access to [facility] is located on [address] [employer] parking is available for your convenience from 5am-5pm- there is a $5.00 charge for this service. Take the elevators directly inside the entrance to the 1st Floor Surgery Lobby. Sign in at the podium located to the left when you get off the elevators. A payment may be expected at the time of service. One visitor may come back to the preoperative area with you. The preoperative staff will be reviewing your medical history, please let them know if you prefer not to have a visitor with you during this time. Once you are ready for surgery, two visitors at a time are permitted in your preoperative room. PATIENT MEDICATION INSTRUCTIONS Please read below carefully for your personalized instructions. Medications: If you are on blood thinner or anticoagulants including aspirin, please confirm with your surgical team on when to stop these medications. Unless instructed differently by your surgical team, stay on all of your medications until your surgery. Pre-Surgery Med Instructions Medication Instructions clobetasol (TEMOVATE) 0.05 % cream Do not take the morning of surgery Clobetasol Propionate (TEMOVATE) 0.05 % external solution Continue until the night before surgery If you have any medication changes between receiving these instructions and your surgery date, please provide this updated information with the nurse who calls you the week day prior to your surgical procedure so we can update your list and provide you with updated instructions for the morning of your procedure. [facility] 04-11-2022 Note HNO ID: [id number] Author: Karin Flanagan APRN.TEMI Service: ? Author Type: Nurse Practitioner Type: Progress Notes Filed: 04/11/2022 11:00 AM Note Text: Summary: dos meds PATIENT MEDICATION INSTRUCTIONS Please read below carefully for your personalized instructions. Medications: If you are on blood thinner or anticoagulants including aspirin, please confirm with your surgical team on when to stop these medications. Unless instructed differently by your surgical team, stay on all of your medications until your surgery. Pre-Surgery Med Instructions Medication Instructions clobetasol (TEMOVATE) 0.05 % cream Do not take the morning of surgery Clobetasol Propionate (TEMOVATE) 0.05 % external solution Continue until the night before surgery If you have any medication changes between receiving these instructions and your surgery date, please provide this updated information with the nurse who calls you the week day prior to your surgical procedure so we can update your list and provide you with updated instructions for the morning of your procedure. [facility] 04-07-2022 Miscellaneous Notes There is another message thread regarding this, and Joel is letting her know not to take it and she will just get pre op IV abx. Thanks, Nancy Benítez APRN.TEMI Pt called about her antibiotic that was sent to her pharamacy. She stated she was allergic to it. Could you please clarify and I will call the patient back thanks Pt is on for a R USE with holmium laser lithotripsy with Dr. Limon on 04/12 under general anaesthesia. CASE#[id number] Pt aware of prep and arrival instructions given verbally 04/04. PT gave verbal confirmation she is not on blood thinners. Went over prep again on 04/07. Jenny bringing holmium laser tech REF#[id number] karla Lopez (04/05 1:22) Post op 04/25 at 8:15 for stent removal. Joel Mendoza documented in this encounter [facility] 04-06-2022 Miscellaneous Notes Made pt aware. Joel Mendoza Pt finished the Flomax you prescribed but her PCP prescribed more should she start the new Flomax? Joel Mendoza documented in this encounter [facility] 04-05-2022 Miscellaneous Notes Left message for pt to call back to inform her of message from dr. limon Patient called in and wanted results of urine. She is out of pills and didn't know if you wanted her to take something else. She has also not passed the stone documented in this encounter [facility] 04-04-2022 Miscellaneous Notes Scheduled pt for surgery for 04/12. Joel Mendoza documented in this encounter [facility] 03-30-2022 Note HNO ID: [id number] Author: Olivia Limon MD Service: ? Author Type: Physician Type: Progress Notes Filed: 03/30/2022 4:22 PM Note Text: [facility] [place] ESTABLISHED PATIENT OFFICE VISIT Patient presents with: Kidney Stones: Here for obstructing stone HISTORY OF PRESENT ILLNESS Meme Gilbert is a 77 year old female who is here for follow up 03/26/22 ct a/p 6mm distal Right stone at UVJ with hydronephrosis. No fevers. Plan Right use/laser stone may pass on its own. Send c+s and zpack To ER for fever >101. Review of Systems Constitutional: Negative for appetite change. HENT: Negative for sneezing. Respiratory: Negative for cough. Cardiovascular: Negative for chest pain. Gastrointestinal: Negative for nausea and vomiting. Skin: Negative for rash. Neurological: Negative for facial asymmetry. The remainder of the ROS was reviewed and is negative. LAB Creatinine Date Value Ref Range Status 03/26/2022 1.25 (H) 0.51 - 0.95 mg/dL Final Comment: Patients receiving either N-Acetylcysteine (NAC) or Metamizole prior to venipuncture, may have falsely depressed results. No results found for: PSA, PSASC No results found for: UGLUCPOC, UBILIPOC, UKETONPOC, USGPOC, UHBPOC, UPHPOC, UPROPOC, UUROPOC, UNITPOC, UWBCPOC, UCOLPOC, UCLARPOC] MEDICATIONS tamsulosin (FLOMAX) 0.4 mg Take 1 capsule by mouth daily at bedtime for 7 days. METHENAMINE HIPPURATE ORAL Take 1 g by mouth. vit [id number]-net 100 mg-50 mg- 50 mg-200 mg cap Take by mouth. clobetasol (TEMOVATE) 0.05 % cream Apply to affected area twice daily. Clobetasol Propionate (TEMOVATE) 0.05 % external solution 0 HISTORIES PAST MEDICAL HISTORY Diagnosis Date Asthma Calculus of cystic duct COPD (chronic obstructive pulmonary disease) (HCC) HTN (hypertension) PAST SURGICAL HISTORY Procedure Laterality Date APPENDECTOMY 1960 CHOLECYSTECTOMY 2018 PAST SURGICAL HISTORY OF 1983 Partial Excision kidney -left PAST SURGICAL HISTORY OF 2001 Cystoscope kidney/bladder PAST SURGICAL HISTORY OF 08/10/2018 Gallstone removal x 2 TOTAL ABDOMINAL HYSTERECT W/WO RMVL TUBE OVARY 1995 FAMILY HISTORY Problem Relation Age of Onset Heart disease Mother Kidney Disease Mother Cancer Mother other (Lung/Respiratory Disease) Mother Heart disease Daughter Kidney Disease Maternal Aunt SOCIAL HISTORY Social History Tobacco Use Smoking status: Never Smokeless tobacco: Never Vaping Use Vaping Use: Never used Substance Use Topics Alcohol use: Never Drug use: Never BP 110/70 (BP Site: Left Arm, BP Position: Sitting, BP Cuff Size: Large Adult) Ht 165.1 cm (5' 5 ) Wt 91.2 kg (201 lb) BMI 33.45 kg/m? Physical Exam Vitals reviewed. Constitutional: General: She is not in acute distress. Cardiovascular: Rate and Rhythm: Normal rate and regular rhythm. Pulmonary: Breath sounds: Normal breath sounds. Neurological: Mental Status: She is alert and oriented to person, place, and time. ASSESSMENT/PLAN: 1. Renal stone - ICD9: 592.0, ICD10: N20.0 (primary diagnosis) Plan use - SURGICAL REQUEST - ELECTIVE (09/2019) 2. Recurrent UTI - ICD9: 599.0, ICD10: N39.0 - URINE CULTURE Olivia Limon MD This note was partially created using voice recognition software and is inherently subject to errors including those of syntax and sound-alike substitutions which may escape proofreading. In such instances, original meaning may be extrapolated by contextual derivation. [facility] 03-14-2022 Note HNO ID: [id number] Author: Olivia Limon MD Service: ? Author Type: Physician Type: Progress Notes Filed: 03/14/2022 3:56 PM Note Text: [facility] [place] ESTABLISHED PATIENT OFFICE VISIT Patient presents with: Kidney Stones: Here for f/u UTI's renal stones. Thinks she had a stone the other day. UC done at [place]. Infectious disease gave her Methenamine 1g BID Dr Gonzalez for 6mo HISTORY OF PRESENT ILLNESS Meme Gilbert is a 76 year old female who is here for follow up of . Niki, may have passed stone R, no fevers, no dysuria, Review of Systems Constitutional: Negative for appetite change. HENT: Negative for sneezing. Respiratory: Negative for cough. Cardiovascular: Negative for chest pain. Gastrointestinal: Negative for nausea and vomiting. Skin: Negative for rash. Neurological: Negative for facial asymmetry. The remainder of the ROS was reviewed and is negative. LAB Creatinine Date Value Ref Range Status 08/13/2021 0.83 0.51 - 0.95 mg/dL Final Comment: Patients receiving either N-Acetylcysteine (NAC) or Metamizole prior to venipuncture, may have falsely depressed results. No results found for: PSA, PSASC No results found for: UGLUCPOC, UBILIPOC, UKETONPOC, USGPOC, UHBPOC, UPHPOC, UPROPOC, UUROPOC, UNITPOC, UWBCPOC, UCOLPOC, UCLARPOC] MEDICATIONS clobetasol (TEMOVATE) 0.05 % cream Apply to affected area twice daily. Clobetasol Propionate (TEMOVATE) 0.05 % external solution 0 HISTORIES PAST MEDICAL HISTORY Diagnosis Date Asthma Calculus of cystic duct COPD (chronic obstructive pulmonary disease) (HCC) HTN (hypertension) PAST SURGICAL HISTORY Procedure Laterality Date APPENDECTOMY 1960 CHOLECYSTECTOMY 2017 PAST SURGICAL HISTORY OF 1983 Partial Excision kidney -left PAST SURGICAL HISTORY OF 2001 Cystoscope kidney/bladder PAST SURGICAL HISTORY OF 08/10/2018 Gallstone removal x 2 TOTAL ABDOMINAL HYSTERECT W/WO RMVL TUBE OVARY 1995 FAMILY HISTORY Problem Relation Age of Onset Heart disease Mother Kidney Disease Mother Cancer Mother other (Lung/Respiratory Disease) Mother Heart disease Daughter Kidney Disease Maternal Aunt SOCIAL HISTORY Social History Tobacco Use Smoking status: Never Smokeless tobacco: Never Substance Use Topics Alcohol use: Never Drug use: Never BP 128/80 (BP Site: Right Arm, BP Position: Sitting, BP Cuff Size: Regular Adult) Ht 165.1 cm (5' 5 ) Wt 91.2 kg (201 lb) BMI 33.45 kg/m? Physical Exam Vitals reviewed. Constitutional: General: She is not in acute distress. Cardiovascular: Rate and Rhythm: Normal rate and regular rhythm. Pulmonary: Breath sounds: Normal breath sounds. Neurological: Mental Status: She is alert and oriented to person, place, and time. ASSESSMENT/PLAN: 1. Acute UTI - ICD9: 599.0, ICD10: N39.0 (primary diagnosis) 2. Recurrent UTI - ICD9: 599.0, ICD10: N39.0 Life long , needs ID, 3. Renal stones - ICD9: 592.0, ICD10: N20.0 Allopurinol 100mg was on it prior 4. OAB (overactive bladder) - ICD9: 596.51, ICD10: N32.81 Trospiumxl 60mg qd 5. History of partial nephrectomy - ICD9: V15.29, ICD10: Z90.5 Left 1983 for uti's Olivia Limon MD This note was partially created using voice recognition software and is inherently subject to errors including those of syntax and sound-alike substitutions which may escape proofreading. In such instances, original meaning may be extrapolated by contextual derivation. [facility] 03-14-2022 History of Presen t illness Narrative Images from the original note were not included. [facility] [place] ESTABLISHED PATIENT OFFICE VISIT Patient presents with: Kidney Stones: Here for f/u UTI's renal stones. Thinks she had a stone the other day. UC done at [place]. Infectious disease gave her Methenamine 1g BID Dr Gonzalez for 6mo HISTORY OF PRESENT ILLNESS Meme Gilbert is a 76 year old female who is here for follow up of . Niki, may have passed stone R, no fevers, no dysuria, Review of Systems Constitutional: Negative for appetite change. HENT: Negative for sneezing. Respiratory: Negative for cough. Cardiovascular: Negative for chest pain. Gastrointestinal: Negative for nausea and vomiting. Skin: Negative for rash. Neurological: Negative for facial asymmetry. The remainder of the ROS was reviewed and is negative. LAB Creatinine Date Value Ref Range Status 08/13/2021 0.83 0.51 - 0.95 mg/dL Final Comment: Patients receiving either N-Acetylcysteine (NAC) or Metamizole prior to venipuncture, may have falsely depressed results. No results found for: PSA, PSASC No results found for: UGLUCPOC, UBILIPOC, UKETONPOC, USGPOC, UHBPOC, UPHPOC, UPROPOC, UUROPOC, UNITPOC, UWBCPOC, UCOLPOC, UCLARPOC] MEDICATIONS clobetasol (TEMOVATE) 0.05 % cream Apply to affected area twice daily. Clobetasol Propionate (TEMOVATE) 0.05 % external solution 0 HISTORIES PAST MEDICAL HISTORY Diagnosis Date Asthma Calculus of cystic duct COPD (chronic obstructive pulmonary disease) (HCC) HTN (hypertension) PAST SURGICAL HISTORY Procedure Laterality Date APPENDECTOMY 1960 CHOLECYSTECTOMY 2018 PAST SURGICAL HISTORY OF 1983 Partial Excision kidney -left PAST SURGICAL HISTORY OF 2001 Cystoscope kidney/bladder PAST SURGICAL HISTORY OF 08/10/2018 Gallstone removal x 2 TOTAL ABDOMINAL HYSTERECT W/WO RMVL TUBE OVARY 1995 FAMILY HISTORY Problem Relation Age of Onset Heart disease Mother Kidney Disease Mother Cancer Mother other (Lung/Respiratory Disease) Mother Heart disease Daughter Kidney Disease Maternal Aunt SOCIAL HISTORY Social History Tobacco Use Smoking status: Never Smokeless tobacco: Never Substance Use Topics Alcohol use: Never Drug use: Never BP 128/80 (BP Site: Right Arm, BP Position: Sitting, BP Cuff Size: Regular Adult) Ht 165.1 cm (5' 5 ) Wt 91.2 kg (201 lb) BMI 33.45 kg/m Physical Exam Vitals reviewed. Constitutional: General: She is not in acute distress. Cardiovascular: Rate and Rhythm: Normal rate and regular rhythm. Pulmonary: Breath sounds: Normal breath sounds. Neurological: Mental Status: She is alert and oriented to person, place, and time. ASSESSMENT/PLAN: 1. Acute UTI - ICD9: 599.0, ICD10: N39.0 (primary diagnosis) 2. Recurrent UTI - ICD9: 599.0, ICD10: N39.0 Life long , needs ID, 3. Renal stones - ICD9: 592.0, ICD10: N20.0 Allopurinol 100mg was on it prior 4. OAB (overactive bladder) - ICD9: 596.51, ICD10: N32.81 Trospiumxl 60mg qd 5. History of partial nephrectomy - ICD9: V15.29, ICD10: Z90.5 Left 1983 for uti's Olivia Limon MD This note was partially created using voice recognition software and is inherently subject to errors including those of syntax and sound-alike substitutions which may escape proofreading. In such instances, original meaning may be extrapolated by contextual derivation. documented in this encounter [facility] 02-18-2021 Note HNO ID: [id number] Author: Lexie Templeton MD Service: ? Author Type: Physician Type: Progress Notes Filed: 02/19/2021 4:07 PM Note Text: This is a self-referral for an allergy and immunology evaluation. Meme Gilbert is a 75 year old female who presents for further evaluation of itching scalp. She has a 1 to 2-year history of itching scalp. Also notes redness and intermittent papular bumps on the scalp. She also complains of skin rash including various parts of her body including her elbows, lower back, buttocks and lower extremities. Rash is pruritic. There are no clear triggers of her symptoms. She uses clobetasol cream 0.05% with improvement in her symptoms. She was treated with 2 doses of Dupixent without relief. She complained of insomnia associated with the use of this medication. She has taken prednisone with temporary improvement in her symptoms. She has taken dphz-tyd-rllonzg antihistamines without relief of itching. Per patient, patch testing was recommended by her computer engineering technician but she was told this is not covered by her insurance. (Sarah Swartz PA-C, [facility]). She has been diagnosed with psoriasis and will be starting treatment with a new injectable medication. She complains of nasal congestion and rhinorrhea since experiencing COVID-19 in October. She has previously taken hydroxyzine with relief. No prior allergy testing or allergy immunotherapy. She has a history of multiple medication allergies/intolerances: Ampicillin: Colitis Amoxicillin: Patient does not recall details of the reaction. Dyspnea is listed in her electronic medical record. Augmentin: Patient does not recall details of this reaction. Vomiting is listed in the electronic medical record. Cefdinir, cefuroxime, Rocephin, sulfa antimicrobials: Skin rash Macrodantin: Rash. Per patient she was hospitalized for this. Doxycycline: Gastrointestinal upset only. Benadryl: Wheezing. She has subsequently taken hydroxyzine and Zyrtec and tolerated these medications without adverse reaction. She c/o of lingering cough since experiencing COVID-19 4 months ago. She reports she has been diagnosed with COPD previously but does not use any respiratory medications. REVIEW OF SYSTEMS: SINUSITIS: The patient does not suffer from frequent sinopulmonary infections. History of possible nasal fracture. Denies a history of nasal polyposis. ASTHMA: The patient has no history of asthma. ECZEMA: The patient has no history of eczema. URTICARIA:The patient does not have a history of urticaria and/or angioedema. GERD: The patient does not have a history of GERD. INSECT STING: The patient does not have a history of systemic reaction to insect sting. FOOD ALLERGY:The patient denies history of food allergy. LATEX: The patient does not have a history of adverse reaction to latex. All other review of systems negative except for those listed above. PAST MEDICAL HISTORY Diagnosis Date - Asthma - Calculus of cystic duct - COPD (chronic obstructive pulmonary disease) (HCC) - HTN (hypertension) MEDICATIONS: clobetasol (TEMOVATE) 0.05 % cream Apply to affected area twice daily. Clobetasol Propionate (TEMOVATE) 0.05 % external solution ALLERGIES: Allergies As of Date: 02/18/2021 Allergen Noted Reaction AMOXICILLIN 08/10/2018 Shortness of Breath AMPICILLIN 07/16/2018 Vomiting AUGMENTIN [AMOXICILLIN-POT CLAVUL*08/10/2018 Vomiting BENADRYL ALLERGY SINUS CHILD'S [D*07/16/2018 Other: See Comments CEFDINIR 02/18/2021 Rash CEFUROXIME 02/18/2021 Rash DOXYCYCLINE 02/18/2021 GI Upset MACRODANTIN [NITROFURANTOIN MACRO*07/16/2018 Hives ROCEPHIN [CEFTRIAXONE] 02/18/2021 Rash SULFA (SULFONAMIDE ANTIBIOTICS) 07/16/2018 Rash Fully Assessed 02/18/2021 PAST SURGICAL HISTORY Procedure Laterality Date - APPENDECTOMY 1959 - CHOLECYSTECTOMY 2017 - PAST SURGICAL HISTORY OF 1983 Partial Excision kidney -left - PAST SURGICAL HISTORY OF 2001 Cystoscope kidney/bladder - PAST SURGICAL HISTORY OF 08/10/2018 Gallstone removal x 2 - TOTAL ABDOM HYSTERECTOMY 1995 FAMILY HISTORY: Allergic rhinitis:no. Asthma: yes: grandaughter. Eczema: no. Cystic fibrosis: no. Immunodeficiency: no. SOCIAL HISTORY: Employer And Job Title: None on file Years Of Education Completed: Not specified Marital Status: Social History Tobacco Use Smoking status: Never Smoker Smokeless tobacco: Never Used ENVIRONMENTAL HISTORY: Lives in a house Age of home: about 50 years Heating: fuel oil Woodburning fireplace in the home: no Air conditioning: Central air Basement: Dry basement Enrique: Zavj-mh-vqzc carpeting Dust mite controls: Dust mite controls are not in place. Pets in the home: There are no pets in the home Outdoor animals: There are no outdoor animals Tobacco smoke: No exposure in the home. Physical Exam: GENERAL APPEARANCE:Well appearing, alert, in no acute distress, well-hydrate (more content not included)... [facility] Renal stones- Primary Calculus of kidney Acute cystitis without hematuria Acute cystitis [facility] Diagnosis Renal stones Calculus of kidney [facility] Diagnosis Acute cystitis without hematuria- Primary Acute cystitis documented in this encounter [facility] for referral (narrative)* Diagnostic Procedure Only (Routine) - Pending Review Specialty Diagnoses / Procedures Referred By Contac t Referred To Contact XR IMAGING Diagnoses Renal stones Procedures XR ABDOMEN 1V SUPINE RADIOLOGIC EXAM ABDOMEN 1 VIEW Jerman Stern APRN.MACHINE ROPE MAKER [address] [place], [place] [id number] Xr Imaging Referral ID Status Reason Start Date Expiration Date Visits Requested Visits Authorized [id number] Pending Review Auto-Generat ed Referral 11/15/2022 06/15/2023 1 1 * Diagnostic Procedure Only (Routine) - Closed Specialty Diagnoses / Procedures Referred By Contac t Referred To Contact XR IMAGING Diagnoses Renal stones Procedures XR ABDOMEN 1V SUPINE RADIOLOGIC EXAM ABDOMEN 1 VIEW Jerman Stern APRN.MACHINE ROPE MAKER [address] [place], [place] [id number] Xr Imaging Referral ID Status Reason Start Date Expiration Date V isits Requested Visits Authorized [id number] Closed Auto-Generate d Referral 05/16/2022 06/15/2023 1 1 [facility] for referral (narrative)* Diagnostic Procedure Only (Routine) - Closed Specialty Diagnoses / Procedures Referred By Contac t Referred To Contact XR IMAGING Diagnoses Renal stones Procedures XR ABDOMEN 1V SUPINE RADIOLOGIC EXAM ABDOMEN 1 VIEW Jerman Stern APRN.MACHINE ROPE MAKER [address] [place], [place] [id number] Xr Imaging Referral ID Status Reason Start Date Expiration Date V isits Requested Visits Authorized [id number] Closed Auto-Generate d Referral 05/16/2022 06/15/2023 1 1 [facility] for visit Narrative* Diagnostic Procedure Only (Routine) - Closed Specialty Diagnoses / Procedures Referred By Contac t Referred To Contact XR IMAGING Diagnoses Renal stones Procedures XR ABDOMEN 1V SUPINE RADIOLOGIC EXAM ABDOMEN 1 VIEW Jerman Stern, BARBER APPRENTICE.MACHINE ROPE MAKER [address] [place] [address] Xr Imaging Referral ID Status Reason Start Date Expiration Date V isits Requested Visits Authorized [id number] Closed Auto-Generate d Referral 05/16/2022 06/15/2023 1 1 [facility] Summary Purpose Family History No Family History Records FoundNo Family History Records FoundNo Family History Records FoundNo Family History Records FoundNo Family History Records FoundNo Family History Records Found Advance Directives No Advanced Directives Records FoundDocuments on File Type Date Recorded Patient Correction Officer Supervisor Expl anation Advance Directive(s) 08/10/2018 7:14 AM Procedure Findings Note HNO ID: [id number] Author: Geneva Cesar Service: General Surgery Author Type: Resident Type: Brief Op Note Filed: 08/10/2018 12:32 PM Note Text: BRIEF OPERATIVE / PROCEDURE NOTE LOG ID: [id number] SURGERY/PROCEDURE DATE: 08/10/2018 INCISION/PROCEDURE START TIME: 11:02 AM INCISION CLOSE/PROCEDURE END TIME: 12:21 PM SURGEON(S)/PROCEDURALIST(S) AND SENIOR CHEMICAL PROCESS ENGINEER(S): Surgeon(s) and Role: * Klaus Tate - Primary * Johnathan Cesar - Assisting No Additional Staff SURGERY/PROCEDURE(S): Laparoscopic completion cholecystectomy. ANESTHESIA: General FINDINGS: Cystic duct and CBD identified by ICG dye prior to endoloop of cystic duct. ESTIMATED BLOOD LOSS: 25 mls SPECIMENS: Gallbladder remnant. COMPLICATIONS: None PRE-OP/PRE-PROCEDURE DIAGNOSIS: calculus of cystic duct POST-OP/POST-PROCEDURE DIAGNOSIS: Calculus of cystic duct [K80.20] SIGNATURE: Johnathan Thornton MD PATIENT NAME: Meme Gilbert DATE: August 10, 2018 TIME: 12:31 PM PAGER/CONTACT #: Additional Source Comments INFORMATION SOURCE (unrecogn ized section and content) DATE CREATED AUTHOR AUTHOR'S ORGANIZ ATION 09/03/2018 [facility] DATE CREATED AUTHOR AUTHOR'S ORGANIZ ATION 05/06/2021 [facility] DATE CREATED AUTHOR AUTHOR'S ORGANIZ ATION 07/20/2021 [facility] DATE CREATED AUTHOR AUTHOR'S ORGANIZ ATION 11/22/2022 [facility] DATE CREATED AUTHOR AUTHOR'S ORGANIZ ATION 02/26/2023 [facility] Source Comments (unrecognize d section and content) In the event this informatio n is protected by the Federal Confidentiality of Alcohol and Drug Abuse Patient Records regulations: The Federal rules restrict any use of the information to criminally investigate or prosecute any alcohol or drug abuse patient.[facility] the event this information is protected by the Federal Confidentiality of Alcohol and Drug Abuse Patient Records regulations: The Federal rules restrict any use of the information to criminally investigate or prosecute any alcohol or drug abuse patient.[facility] the event this information is protected by the Federal Confidentiality of Alcohol and Drug Abuse Patient Records regulations: The Federal rules restrict any use of the information to criminally investigate or prosecute any alcohol or drug abuse patient.[facility] the event this information is protected by the Federal Confidentiality of Alcohol and Drug Abuse Patient Records regulations: The Federal rules restrict any use of the information to criminally investigate or prosecute any alcohol or drug abuse patient.[facility] the event this information is protected by the Federal Confidentiality of Alcohol and Drug Abuse Patient Records regulations: The Federal rules restrict any use of the information to criminally investigate or prosecute any alcohol or drug abuse patient.[facility] the event this information is protected by the Federal Confidentiality of Alcohol and Drug Abuse Patient Records regulations: The Federal rules restrict any use of the information to criminally investigate or prosecute any alcohol or drug abuse patient.[facility] the event this information is protected by the Federal Confidentiality of Alcohol and Drug Abuse Patient Records regulations: The Federal rules restrict any use of the information to criminally investigate or prosecute any alcohol or drug abuse patient.[facility] the event this information is protected by the Federal Confidentiality of Alcohol and Drug Abuse Patient Records regulations: The Federal rules restrict any use of the information to criminally investigate or prosecute any alcohol or drug abuse patient.[facility] the event this information is protected by the Federal Confidentiality of Alcohol and Drug Abuse Patient Records regulations: The Federal rules restrict any use of the information to criminally investigate or prosecute any alcohol or drug abuse patient.[facility] the event this information is protected by the Federal Confidentiality of Alcohol and Drug Abuse Patient Records regulations: The Federal rules restrict any use of the information to criminally investigate or prosecute any alcohol or drug abuse patient.[facility] the event this information is protected by the Federal Confidentiality of Alcohol and Drug Abuse Patient Records regulations: The Federal rules restrict any use of the information to criminally investigate or prosecute any alcohol or drug abuse patient.[facility] the event this information is protected by the Federal Confidentiality of Alcohol and Drug Abuse Patient Records regulations: The Federal rules restrict any use of the information to criminally investigate or prosecute any alcohol or drug abuse patient.[facility] the event this information is protected by the Federal Confidentiality of Alcohol and Drug Abuse Patient Records regulations: The Federal rules restrict any use of the information to criminally investigate or prosecute any alcohol or drug abuse patient.[facility] the event this information is protected by the Federal Confidentiality of Alcohol and Drug Abuse Patient Records regulations: The Federal rules restrict any use of the information to criminally investigate or prosecute any alcohol or drug abuse patient.[facility] the event this information is protected by the Federal Confidentiality of Alcohol and Drug Abuse Patient Records regulations: The Federal rules restrict any use of the information to criminally investigate or prosecute any alcohol or drug abuse patient.[facility] Teams (unrecognized sec tion and content) Input Output Clerk Relationship Specialty Start Date End Date Renuka Ovalle [address] [place] [address] [phone] PCP - General Family Practice 07/02/18 Input Output Clerk Relationship Specialty Start Date End Date Renuka Ovalle [address] [place] [address] [phone] PCP - General Family Practice 07/02/18 Input Output Clerk Relationship Specialty Start Date End Date Renuka Ovalle [address] [place] [address] [phone] PCP - General Family Medicine 07/02/18 Input Output Clerk Relationship Specialty Start Date End Date Renuka Ovalle [address] [place], [place] [phone] PCP - General Family Medicine 07/02/18 Input Output Clerk Relationship Specialty Start Date End Date Renuka Ovalle [address] [place] [address] [phone] PCP - General Family Medicine 07/02/18 Input Output Clerk Relationship Specialty Start Date End Date Renuka Ovalle [address] [place] [address] [phone] PCP - General Family Medicine 07/02/18 Input Output Clerk Relationship Specialty Start Date End Date Renuka Ovalle [address] [place] [address] [phone] PCP - General Family Medicine 07/02/18 Input Output Clerk Relationship Specialty Start Date End Date Renuka Ovalle [address] [place] [phone] PCP - General Family Medicine 07/02/18 Input Output Clerk Relationship Specialty Start Date End Date Renuka Ovalle [address] [place] [address] [phone] PCP - General Family Medicine 07/02/18 Input Output Clerk Relationship Specialty Start Date End Date Renuka Ovalle [address] [place] [address] [phone] PCP - General Family Medicine 07/02/18 Input Output Clerk Relationship Specialty Start Date End Date Javan Anderson MD [address] [place] [id number] Surgeon Urology 09/30/22 Input Output Clerk Relationship Specialty Start Date End Date Renuka Ovalle MD [address] [place] [address] [phone] PCP - General Family Medicine 07/02/18 Input Output Clerk Relationship Specialty Start Date End Date Javan Anderson MD [address] [place] [address] Surgeon Urology 09/30/22 Reason for Visit (unrecogniz ed section and content) Reason Comments surgery Reason Comments urine results Reason Onset Date Comments Oven Dauber - Other 04/12/2022 Specialty Diagnoses / Procedures Referred By Jackie t Referred To Contact Diagnoses Renal stone Procedures CYSTO/URETERO W/LITHOTRIPSY &INDWELL STENT INSRT CYSTOURETHROSCOPY W/ URETEROSCOPY AND/OR PYELOSCOPY W/ LITHOTRIPSY INCLUDE INSERTION OF INDWELLING URETERAL STENT Mr Surgery [address] [place] [address] Referral ID Status Reason Start Date Expiration Date Visits Re quested Visits Authorized [id number] 1 1 Reason Comments Kidney Stones Here for Ct scan res ults. Pt states that she was in the ER for pain from the K/S. Reason Comments Results Reason Onset Date Comments Appointment Request 09/30/2022 FOR RECORDS PERTAINING TO PATIENTS WHO ARE OR HAVE BEEN ENROLLED IN A CHEMICAL DEPENDENCY/SUBSTANCEABUSE PROGRAM, SOME INFORMATION MAY BE OMITTED. This clinical summary was aggregated from multiple sources. Caution should be exercised in using it in the provision of clinical care. This summary normalizes information from multiple sources, and as a consequence, information in this document may materially change the coding, format and clinical context of patient data. In addition, data may be omitted in some cases. CLINICAL DECISIONS SHOULD BE BASED ON THE PRIMARY CLINICAL RECORDS. [employer] [facility]. provides no warranty or guarantee of the accuracy or completeness of information in this document.
== END | disposition home or self-care (01) ==
PROVIDERS: PCP Internal Medicine; Referring Provider Urology; Visit Provider Urology
DX: N20.0 Calculus of kidney (principal)
CPT/HCPCS: 74176